=== PATIENT | male | born 1995 | race Caucasian/White ===

== ENCOUNTER 2018-06-11 09:50 | Emergency (ER) | payer BC, SELFPAY ==
[2018-06-11 09:54] VITALS: BP 157/66; PULSE 85; RESP 16; TEMP 37; O2SAT 98
--- NOTE | 2018-06-11 10:18 | ED.GENADUL ---
Disposition Clinical Impression: Exposure to bat without known bite Disposition: HOME Condition: Good Instructions: Rabies Vaccine (ED) Additional Instructions: Today on 06/11/18 you were potentially exposed to rabies. You are getting your vaccine today. You will require a repeat dose of the vaccine on 06/14, 06/18, 06/25, and 07/09. Please follow-up with local emergency departments as fast as possible on these days for your continued vaccinations. Sometimes this can also be found at her local [facility] or [facility]. If you develop any symptoms of chest pain, shortness of breath, vomiting, diarrhea, please return immediately. If you notice any worsening of your symptoms, or any new symptoms such as vomiting, diarrhea, fever, chills, shortness of breath, chest pain, numbness, weakness, or fainting , please return immediately to the emergency department for reevaluation. Please follow up with your primary care provider as soon as possible for reassessment and reevaluation. As always, it was a pleasure participating in your medical care today. Medical Decision Making - Medical Decision Making This is a 22-year-old male who presents after exposure to a bat. He was not bitten that he was aware of however he did find about by his pillowcase when he woke up. He let it out without any incident. Physical exam demonstrates no signs of bite flores. He has no red flags of immunocompromise, or other medical problems. He is requesting rabies vaccine. Unfortunately he will be traveling to [facility] after today. He will require his multiple doses at other locations. We will provide him with the vaccine and immunoglobulin here today, as well as the dates needed for repeat vaccines. We have talked to him about the importance of following up at other emergency departments for administration of this. We discussed red flags which to return the patient understands. I have extensively reviewed the treatment plan and discharge instructions with the patient. I have addressed all patient concerns at this time. The patient was made aware of what symptoms to monitor for that would warrant a return to the emergency department. Discussed the plan with the patient, they demonstrate verbal understanding and agreement with our assessment and plan at this time. History of Present Illness - General Chief complaint: GenMedical Stated complaint: RABIES CONCERN Time Seen by Provider: 06/11/18 10:11 - History of Present Illness Initial comments: This is a 22-year-old male with no past medical history who presents today for evaluation of rabies exposure. The patient states that he woke up this morning, and noticed a bat in his bedroom. It was by his head/pillow. He open the window and let it out. He was not bit. Out of concern for this he did come to the ER for further evaluation and post potential exposure prophylaxis. He had no bite flores that he was aware of. He has had no symptoms of hydro-phobia, difficulty swallowing, fevers, chills, rash, chest pain, shortness of breath, numbness, tingling weakness, vomiting or diarrhea. He denies any other symptoms at this point. He is not on any medications. He has had no problems with immunizations in the past and his regular immunizations are up-to-date. He denies any previous surgeries. He denies any IV or illicit drug use. He denies any pertinent family history. - Related Data Unknown [No Known Home Meds] 06/11/18 Allergies Allergy/AdvReac Type Severity Reaction Status Date / Time No Known Drug Allergies Allergy Unverified 06/22/15 10:11 Review of Systems Other: 10 point review of systems was performed, pertinent positives and negatives are noted in the history of present illness. General Exam - Other Other exam information: 1.Const: Well-nourished, Well-developed, appearing stated age 2.Eyes: PERRL, no conjunctival injection, and symmetrical lids. 3.ENT: Atraumatic external nose and ears. Moist MM. Neck: Symmetric, trachea midline, No thyromegaly. 4.CVS: +S1/S2, No murmurs or gallops. Peripheral pulses 2+ and equal in all extremities. Brisk capillary refill in all extremities. 5.RESP: Unlabored respiratory effort. Clear to auscultation bilaterally. No wheezes rales or rhonchi 6.GI: Soft, Nontender/Nondistended, No hepatosplenomegaly. No guarding or rebound. 7.MSK: Normocephalic/Atraumatic, Extremities w/o deformity or ttp No cyanosis or clubbing, Normal movement of all extremities 8.Skin: Warm, Dry. No rashes or lesions. No evidence of bite flores, or skin penetration on the scalp, thorax, abdomen, back, legs or upper extremities. 9.Neuro: dairy farmworker II-XII grossly intact. Sensation grossly intact, no focal neurologic deficits. 10.Psych: (AAO) x3. Appropriate mood and affect Course Vital Signs - 24 hr 06/11/18 09:54 Temperature 37.0 C Pulse 85 Respiratory 16 Rate Blood Pressure 157/66 Pulse Oximetry 98
--- NOTE | 2018-06-11 10:22 | ED.GENADUL_ITS ---
Disposition Clinical Impression: Exposure to bat without known bite Disposition: HOME Condition: Good Instructions: Rabies Vaccine (ED) Additional Instructions: Today on 06/11/18 you were potentially exposed to rabies. You are getting your vaccine today. You will require a repeat dose of the vaccine on 06/14, 06/18, 06/25 , and 07/09. Please follow-up with local emergency departments as fast as possible on these days for your continued vaccinations. Sometimes this can also be found at her local [facility] or [facility]. If you develop any symptoms of chest pain, shortness of breath, vomiting, diarrhea, please return immediately. If you notice any worsening of your symptoms, or any new symptoms such as vomiting, diarrhea, fever, chills, shortness of breath, chest pain, numbness, weakness, or fainting , please return immediately to the emergency department for reevaluation. Please follow up with your primary care provider as soon as possible for reassessment and reevaluation. As always, it was a pleasure participating in your medical care today. Medical Decision Making - Medical Decision Making This is a 22-year-old male who presents after exposure to a bat. He was not bitten that he was aware of however he did find about by his pillowcase when he woke up. He let it out without any incident. Physical exam demonstrates no signs of bite flores. He has no red flags of immunocompromise, or other medical problems. He is requesting rabies vaccine. Unfortunately he will be traveling to [facility] after today. He will require his multiple doses at other locations. We will provide him with the vaccine and immunoglobulin here today, as well as the dates needed for repeat vaccines. We have talked to him about the importance of following up at other emergency departments for administration of this. We discussed red flags which to return the patient understands. I have extensively reviewed the treatment plan and discharge instructions with the patient. I have addressed all patient concerns at this time. The patient was made aware of what symptoms to monitor for that would warrant a return to the emergency department. Discussed the plan with the patient, they demonstrate verbal understanding and agreement with our assessment and plan at this time. History of Present Illness - General Chief complaint: GenMedical Stated complaint: RABIES CONCERN Time Seen by Provider: 06/11/18 10:11 - History of Present Illness Initial comments: This is a 22-year-old male with no past medical history who presents today for evaluation of rabies exposure. The patient states that he woke up this morning, and noticed a bat in his bedroom. It was by his head/pillow. He open the window and let it out. He was not bit. Out of concern for this he did come to the ER for further evaluation and post potential exposure prophylaxis. He had no bite flores that he was aware of. He has had no symptoms of hydro-phobia, difficulty swallowing, fevers, chills, rash, chest pain, shortness of breath, numbness, tingling weakness, vomiting or diarrhea. He denies any other symptoms at this point. He is not on any medications. He has had no problems with immunizations in the past and his regular immunizations are up-to-date. He denies any previous surgeries. He denies any IV or illicit drug use. He denies any pertinent family history. - Related Data Unknown [No Known Home Meds] 06/11/18 Allergies Allergy/AdvReac Type Severity Reaction Status Date / Time No Known Drug Allergies Allergy Unverified 06/22/15 10:11 Review of Systems Other: 10 point review of systems was performed, pertinent positives and negatives are noted in the history of present illness. General Exam - Other Other exam information: 1.Const: Well-nourished, Well-developed, appearing stated age 2.Eyes: PERRL, no conjunctival injection, and symmetrical lids. 3.ENT: Atraumatic external nose and ears. Moist MM. Neck: Symmetric, trachea midline, No thyromegaly. 4.CVS: +S1/S2, No murmurs or gallops. Peripheral pulses 2+ and equal in all extremities. Brisk capillary refill in all extremities. 5.RESP: Unlabored respiratory effort. Clear to auscultation bilaterally. No wheezes rales or rhonchi 6.GI: Soft, Nontender/Nondistended, No hepatosplenomegaly. No guarding or rebound. 7.MSK: Normocephalic/Atraumatic, Extremities w/o deformity or ttp No cyanosis or clubbing, Normal movement of all extremities 8.Skin: Warm, Dry. No rashes or lesions. No evidence of bite flores, or skin penetration on the scalp, thorax, abdomen, back, legs or upper extremities. 9.Neuro: bread distributor II-XII grossly intact. Sensation grossly intact, no focal neurologic deficits. 10.Psych: (AAO) x3. Appropriate mood and affect Course Vital Signs - 24 hr 06/11/18 09:54 Temperature 37.0 C Pulse 85 Respiratory 16 Rate Blood Pressure 157/66 Pulse Oximetry 98
[2018-06-11 11:32] VITALS: BP 124/79; PULSE 78; RESP 16; TEMP 37.2; O2SAT 98
== END 2018-06-11 11:33 | disposition home or self-care (01) ==
PROVIDERS: Emergency Provider Student in an Organized Health Care Education/Training Program; PCP Specialist/Technologist Athletic Trainer
DX: F41.9 Anxiety disorder, unspecified (principal); Z20.3 Contact with and (suspected) exposure to rabies
CPT/HCPCS: 90471; 96372; 99284; 90675; 99282

== ENCOUNTER 2020-01-21 16:37 | Outpatient (REF) | payer BC, SELFPAY ==
[2020-01-21 19:44] LABS: Abs Immature Grans 0.02 k/cumm (0.0-0.09); Absolute Basophil Count 0.01 k/cumm (0.0-0.2); Absolute Eosinophil Count 0.32 k/cumm (0.0-0.7); Absolute Lymphocyte Count 2.05 k/cumm (1.2-3.4); Absolute Monocyte Count 0.63 k/cumm (0.11-0.7); Absolute Neutrophil Count 4.47 k/cumm (1.2-6.7); Basophils % 0.1; Eosinophils % 4.3; HCT 45.2 % (40.0-50.0); HGB 15.5 g/dL (13.5-17.5); Immature Grans % 0.3 %; Lymphocytes % 27.3; Mean Corp. HGB Concentration 34.3 g/dL (32.0-36.0); Mean Corpuscular Hemoglobin 30.5 pg (27.0-33.0); Mean Platelet Volume 10.2 fL (8.0-11.0); Monocytes % 8.4; Neutrophils % 59.6; Platelet Count 257 x1000/uL (130-400); RBC 5.08 m/cumm (4.50-6.00); RBC Distribution Width 12.3 % (11.8-14.1)
[2020-01-21 19:51] LABS: Mono Screening Negative (Negative)
== END 2020-01-21 16:57 ==
LOC: NCHCN 16:37
PROVIDERS: PCP Specialist/Technologist Athletic Trainer; Visit Provider Nurse Practitioner Family
DX: R53.83 Other fatigue (principal)
CPT/HCPCS: 87077; 85025; 86308; 87070